=== PATIENT | female | born 1960 | race Caucasian/White ===

== ENCOUNTER 2023-03-05 08:00 | Day surgery (SDC) | payer OTHER ==
[~2023-03-05 08:00] MED LIST: Midazolam 1 MG/ML 2 ML SDV ONE; Propofol 200 MG/20 ML SDV ONE; fentaNYL 50 MCG/ML SDV ONE
[2023-03-05] MEDS: Lactated Ringers 1,000 ML IV SCH (08:58)
[2023-03-05] MEDS ORDERED: Ondansetron 4 MG/2 ML SDV ONE (10:44)
== END 2023-03-05 12:17 | disposition home or self-care (01) ==
LOC: JP.SDS 08:00
PROVIDERS: ATTEND Student in an Organized Health Care Education/Training Program
DX: Z12.11 Encounter for screening for malignant neoplasm of colon (principal); K21.9 Gastro-esophageal reflux disease without esophagitis; E66.3 Overweight; K60.2 Anal fissure, unspecified; K62.89 Other specified diseases of anus and rectum; Z68.28 Body mass index [BMI] 28.0-28.9, adult
CPT/HCPCS: 45380; 88305; J2250; J2405; J2704; J3010; J7120